=== PATIENT | female | born 1985 | race African-American/Black ===

== ENCOUNTER 2017-03-10 17:52 | Emergency (ER) | payer MEDICAID ==
--- NOTE | 2017-03-10 18:37 | ER Document Report ---
ED General - General Chief Complaint: Toothache Stated Complaint: TOOTH PAIN Time Seen by Provider: 03/10/17 18:36 Mode of Arrival: Ambulatory Information source: Patient Notes: Patient is a 31-year-old female who presents with left partial posterior tooth fracture. She states that she has had pain intermittently with this tooth for the past 7 years but today while brushing her teeth she felt a piece of her tooth break off. She denies any bleeding or drainage from the area. Denies any facial swelling, difficulty swallowing. She has not taken any pain medication for this. TRAVEL OUTSIDE OF THE [place] IN LAST 30 DAYS: No Past Medical History - General Information source: Patient - Social History Smoking Status: Unknown if Ever Smoked Family History: Reviewed & Not Pertinent Patient has suicidal ideation: No Renal/ Medical History: Denies: Hx Peritoneal Dialysis Review of Systems - Review of Systems Constitutional: See HPI EENT: See HPI Cardiovascular: No symptoms reported Respiratory: No symptoms reported Gastrointestinal: No symptoms reported Genitourinary: No symptoms reported Female Genitourinary: No symptoms reported Musculoskeletal: No symptoms reported Skin: No symptoms reported Hematologic/Lymphatic: No symptoms reported Neurological/Psychological: No symptoms reported Physical Exam - Vital signs Vitals: Temp Pulse Resp BP Pulse Ox 98.8 F 74 18 128/84 H 100 03/10/17 18:00 03/10/17 18:00 03/10/17 18:00 03/10/17 18:00 03/10/17 18:00 - Notes Notes: PHYSICAL EXAM: CONSTITUTIONAL: Alert and oriented, well-appearing and in no acute distress. HENT: Normocephalic, atraumatic. Oropharynx clear without erythema, tonsilar exudate or malocclusion. Trachea midline. Uvula midline. Moist mucous membranes. Partial fracture to tooth #17, not involving the root. No gingival or buccal mucosal swelling or evidence of dental abscess. EYES: Pupils equal round and reactive to light, EOM intact. Sclera anicteric, conjunctiva are normal. No entrapment. HEART: Regular rate and rhythm without murmurs. LUNGS: CTAB and equal. No wheezes, rales or rhonchi. BACK: nontender, no paraspinous spasm, 5+/5 strengths, DTRs 2+, SLR -. EXTREMITIES: Normal range of motion, no pitting edema. No cyanosis. Cap Refill < 3 seconds. NEURO: Cranial nerves grossly intact. Normal sensory/motor exams. PSYCH: Normal mood, normal affect. SKIN: Warm and dry. Normal turgor. No rashes or lesions noted. Course - Re-evaluation Re-evalutation: 03/10/17 19:03 Patient seen and examined. Partial fracture of tooth #17 without involvement of the root. No evidence of dental abscess. Will treat empirically with antibiotics and get pain medication. Advised to follow-up with dentist. At this time, will discharge with return precautions and follow-up recommendations. Verbal discharge instructions given at the bedside and opportunity for questions given. Medication warnings reviewed. Patient is in agreement with this plan and has verbalized understanding of return precautions and the need for primary care follow-up in the next 24-72 hours. - Vital Signs Vital signs: Temp Pulse Resp BP Pulse Ox 98.8 F 74 18 128/84 H 100 03/10/17 18:00 03/10/17 18:00 03/10/17 18:00 03/10/17 18:00 03/10/17 18:00 Discharge - Discharge Clinical Impression: Dental caries Tooth fracture Qualifiers: Encounter type: initial encounter Fracture type: closed Qualified Code(s): S02.5XXA - Fracture of tooth (traumatic), initial encounter for closed fracture Condition: Stable Disposition: HOME, SELF-CARE Additional Instructions: TOOTHACHE: Your pain is due to dental decay. The tooth must be repaired in order for you to feel better. You will, therefore, be referred to a dentist. We do not have dentists on the staff at [facility]. Severe swelling or drainage around a tooth usually means a dental abscess. This also requires evaluation and treatment by the dentist, but antibiotics may be prescribed while awaiting dental treatment. You should be rechecked immediately if you develop major swelling of the face, increasing pain, a lump in the jaw or gums, headache, difficulty swallowing, or fever. ORAL NARCOTIC MEDICATION: You have been given a prescription for pain control. This medication is a narcotic. It's best taken with food, as nausea can result if taken on an empty stomach. Don't operate machinery or drive within six hours of taking this medication. Do not combine this medicine with alcohol, or with any medication which can cause sedation (such as cold tablets or sleeping pills) unless you get permission from the physician. Narcotics tend to cause constipation. If possible, drink plenty of fluids and eat a diet high in fiber and fruits. Please be aware that prescription narcotics also have the potential for abuse. People become addicted to these medications because of the general sense of wellbeing that they induce. This feeling along with a significant reduction in tension, anxiety, and aggression provides a stimulating seductive quality to these drugs. Once your pain is under control, we encourage you to discard your unused narcotics. PENICILLIN V K: You have been given a prescription for Penicillin VK. Your physician has determined that this is the best antibiotic for your condition. Pen VK can be taken with meals, however more of the antibiotic gets into the bloodstream if it's taken on an empty stomach. Penicillin usually has no side effects. However, allergy to penicillins is common. If you have had an allergic reaction to any drug of the penicillin family, you should never take any other penicillin. Notify your doctor at once if you develop hives, itching, swelling, faintness, or shortness of breath. FOLLOW-UP CARE: You have been referred for follow-up care to the dentists listed below. Call the dentists office for an appointment as you were instructed or within the next two days. If you experience worsening or a significant change in your symptoms, notify the physician immediately or return to the Emergency Department at any time for re-evaluation. [facility] [address] [place], [place] Friday mornings, by appointment [facility] [address] [place] [address] [facility] [address] [facility] [address] [facility] ([facility]) [facility] [employer] [facility] [address] [email or web address] [address] [place] [address] Friday- 8:00am to 5:00 pm Will see patients from other [facility]. Charges based on income and family size and accepts Medicare, Medicaid, and Insurances Will pull molars [facility] [address] Hours of Operation 8:00 am - 4:30 pm weekdays The following dental offices accept Medicaid: [facility] Dr. aDly Dr. Wheeler Dr. Mallory Dr. Arguello Yonny Caballero, [place], and Jenni oral surgery Dr. Deluna ([place]) Dr. Masterson ([place]) [facility] Drs. Leonardo ([place]) Dr. Fong ([place]) [facility] Dr. Hyde ([place]) Drs. Thomas and ([place]) Medicaid Care Line Prescriptions: Hydrocodone/Acetaminophen [Vicodin 5-300 mg Tablet] 1 tab PO ASDIR PRN #15 tab PRN Reason: Penicillin V Potassium [Penicillin Vk 500 mg Tablet] 500 mg PO BID #20 tablet
[2017-03-10 19:29] VITALS: BP 119/81
== END 2017-03-10 19:30 | disposition home or self-care (01) ==
LOC: ER 17:52
DX: S02.5XXA Fracture of tooth (traumatic), initial encounter for closed fracture (principal); K02.9 Dental caries, unspecified; K08.89 Other specified disorders of teeth and supporting structures; X58.XXXA Exposure to other specified factors, initial encounter
CPT/HCPCS: 99282

== ENCOUNTER 2018-02-26 14:37 | Emergency (ER) | payer SELFPAY ==
[2018-02-26 14:43] VITALS: BP 129/89
--- NOTE | 2018-02-26 15:51 | ER Document Report ---
ED General - General Chief Complaint: Anxiety Stated Complaint: ANXIETY ISSUE Time Seen by Provider: 02/26/18 15:43 Notes: 32-year-old female here with complaints of feeling anxious and stressed out, chest tightness, palpitations, feeling hyper that started earlier this afternoon. She states that she has been very stressed out in her life lately but about nothing in particular. The symptoms resolved completely after about 20 minutes. She did not have any worsening of the symptoms with exertion or breathing. She did not take anything for the symptoms. She has had the same symptoms in the past as panic/anxiety attacks but "I have never done anything about them". She does not take any regularly scheduled anxiety medicine. She has not seen her primary physician or psychiatrist about this. TRAVEL OUTSIDE OF THE [place] IN LAST 30 DAYS: No - Related Data Allergies/Adverse Reactions: Penicillins Allergy (Verified 03/10/17 19:27) Anaphylaxis Past Medical History - Social History Smoking Status: Unknown if Ever Smoked Family History: Reviewed & Not Pertinent Renal/ Medical History: Denies: Hx Peritoneal Dialysis - Immunizations Hx Diphtheria, Pertussis, Tetanus Vaccination: Yes Review of Systems - Review of Systems Notes: See history of present illness for pertinent positive review of systems; otherwise all review of systems have been reviewed and are negative Physical Exam - Vital signs Vitals: Temp Pulse Resp BP Pulse Ox 98.7 F 89 20 129/89 H 100 02/26/18 14:41 02/26/18 14:41 02/26/18 14:41 02/26/18 14:41 02/26/18 14:41 - Notes Notes: PHYSICAL EXAMINATION: GENERAL: Well-appearing and in no acute distress. HEAD: Atraumatic, normocephalic. EYES: Pupils equal round and reactive to light, extraocular movements intact, sclera anicteric, conjunctiva are normal. ENT: nares patent, oropharynx clear without exudates. Moist mucous membranes. NECK: Normal range of motion, supple without lymphadenopathy LUNGS: CTAB and equal. No wheezes rales or rhonchi. HEART: Regular rate and rhythm without murmurs ABDOMEN: Soft, no tenderness. No facial grimacing/wincing upon palpation. No guarding, no rebound. EXTREMITIES: Normal range of motion, no pitting edema. No cyanosis. NEUROLOGICAL: Cranial nerves grossly intact. Normal sensory/motor exams. PSYCH: Appears very slightly anxious but otherwise normal behavior and judgment and insight SKIN: Warm, Dry, normal turgor, no rashes or lesions noted Course - Re-evaluation Re-evalutation: 02/26/18 15:50 MEDICAL DECISION MAKING: Concern for anxiety/panic attack Low clinical suspicion for acute emergency medical condition i.e. ACS/PE EKG is unremarkable and will give prescription for hydroxyzine Instructed follow-up PCP and/or psychiatrist next day or few Patient understands and agrees to the plan of care - Vital Signs Vital signs: Temp Pulse Resp BP Pulse Ox 98.7 F 89 20 129/89 H 100 02/26/18 14:41 02/26/18 14:41 02/26/18 14:41 02/26/18 14:41 02/26/18 14:41 Discharge - Discharge Clinical Impression: Anxiety Condition: Good Disposition: HOME, SELF-CARE Instructions: Anxiety ([facility]) Additional Instructions: You were seen in the emergency department at [facility]. Use the hydroxyzine for anxiety attacks on an as-needed basis. If you were given any sedating medications, such as hydroxyzine, be sure not to operate heavy machinery (example - driving) and be sure you are not too sedated to walk appropriately. Please followup with your primary physician in the next few days for further management/evaluation. Please return to the emergency department for worsening of symptoms or any symptom that you deem to be concerning or life-threatening. Thank you for allowing us to be part of your care. This documentation serves as your work/school note for the ED visit today. Prescriptions: Hydroxyzine HCl 50 mg PO BIDP PRN #10 tablet PRN Reason: Anxiety
--- NOTE | 2018-02-27 00:19 | EKG REPORT ---
SEVERITY:- BORDERLINE ECG - SINUS RHYTHM BORDERLINE T ABNORMALITIES, ANT-LAT LEADS : Confirmed by: Minerva Martel MD 27-Feb-2018 00:18:20
== END 2018-02-26 16:06 | disposition home or self-care (01) ==
LOC: ER 14:37
DX: F41.9 Anxiety disorder, unspecified (principal); R07.89 Other chest pain; R00.2 Palpitations; Z87.892 Personal history of anaphylaxis; Z88.0 Allergy status to penicillin
CPT/HCPCS: 93005; 93010; 99283

== ENCOUNTER 2018-04-14 12:55 | Emergency (ER) | payer OTHER ==
[2018-04-14 13:50] VITALS: BP 123/89
[2018-04-14] MEDS ORDERED: ACETAMINOPHEN 325 MG TABLET PO ONE (14:36)
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
== END 2018-04-14 15:45 | disposition home or self-care (01) ==
LOC: ER 12:55
DX: S29.012A Strain of muscle and tendon of back wall of thorax, initial encounter (principal); S16.1XXA Strain of muscle, fascia and tendon at neck level, initial encounter; M54.5 Low back pain; M54.2 Cervicalgia; M25.519 Pain in unspecified shoulder; V49.40XA Driver injured in collision with unspecified motor vehicles in traffic accident, initial encounter; Z87.892 Personal history of anaphylaxis; Z88.0 Allergy status to penicillin; Z87.891 Personal history of nicotine dependence
CPT/HCPCS: 72070; 72125; 99284

== ENCOUNTER 2019-11-07 16:58 | Emergency (ER) | payer OTHER ==
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
[2019-11-07 20:32] VITALS: BP 121/78
== END 2019-11-07 20:33 | disposition home or self-care (01) ==
LOC: ER 16:58
DX: M54.5 Low back pain (principal); M54.2 Cervicalgia; R07.89 Other chest pain; V49.40XA Driver injured in collision with unspecified motor vehicles in traffic accident, initial encounter; R25.2 Cramp and spasm
CPT/HCPCS: 70450; 71260; 72110; 72125; 74177; 99284